=== PATIENT | male | born 1990 | race Caucasian/White ===

== ENCOUNTER 2020-10-01 02:54 | Emergency (ER) | payer OTHER ==
[~2020-10-01] VITALS: Ht 193 cm; Wt 100.0 kg
[~2020-10-01 02:54] MED LIST: LORTAB 5/500 501 TAB PO; NO HOME MEDICATIONS
[2020-10-01 03:06] VITALS: TEMP 101.5
[2020-10-01] MEDS ORDERED: DECADRON 4MG TAB4 MG PO (03:33)
[2020-10-01] MEDS ORDERED: DOXYCYCLINE 10100 MG PO (03:33)
[2020-10-01 03:42] VITALS: BP 155/91; PULSE 98
== END 2020-10-01 03:42 | disposition home or self-care (01) ==
LOC: COL.ER 02:54
DX: U07.1 COVID-19 (principal)
CPT/HCPCS: J8540